=== PATIENT | female | born 1970 | race Caucasian/White ===

== ENCOUNTER 2018-02-09 08:52 | Outpatient (REF) | payer BC, SELFPAY ==
[2018-02-09 13:15] LABS: Anion Gap 9.4 mmol/L (3-11); BUN 14 mg/dL (7-18); CO2 28.6 mmol/L (21.0-32.0); Calcium 9.3 mg/dL (8.5-10.1); Chloride 102 mmol/L (98-107); Cholesterol 192 mg/dL (50-200); Glucose 90 mg/dL (70-100); HDL Cholesterol 75 mg/dL (40-60); LDL CHOLESTEROL 108 mg/dL (<100); Potassium 4.1 mmol/L (3.5-5.1); Sodium 140 mmol/L (136-145); Triglyceride 47 mg/dL (30-150)
== END 2018-02-09 09:12 ==
LOC: NCHCN 08:52
PROVIDERS: PCP Nurse Practitioner Family; Visit Provider Nurse Practitioner Family
DX: I10 Essential (primary) hypertension (principal)
CPT/HCPCS: 80048; 80061; 83721

== ENCOUNTER 2018-08-29 01:21 | Outpatient (CLI) | payer BC, SELFPAY ==
--- NOTE | 2018-08-29 12:21 | DI.MAMMO_ITS ---
SYMPTOM/DIAGNOSIS: SCREENING, PREVENTATIVE CARE, Z00.00 MAMMOGRAMS: Mammograms were interpreted according to the usual protocol including computer analysis with CAD system, tomosynthesis and C view imaging. Comparison is made with prior examinations. Breast density, Category B. No suspicious masses are seen in the right breast. No suspicious microcalcifications are seen. There are two areas of asymmetric breast tissue in the left breast, one in the medial left breast seen on the craniocaudad view and one in the upper left breast seen on the mediolateral oblique view. These areas should be further evaluated with spot compression views. Ultrasound may be indicated at that time. IMPRESSION: Category 0. MQSA ASSESSMENT OF FINDINGS: Incomplete: Needs additional imaging evaluation. Category 0. Patient will receive a letter notifying them of these results. BI-RADS category B. There are scattered areas of fibroglandular density.
--- NOTE | 2018-08-29 12:28 | DI.RAD_ITS ---
SYMPTOMS/DIAGNOSIS: RIGHT THUMB PAIN, M79.644 RIGHT THUMB: Three views. There are hypertrophic changes seen at the 1st carpometacarpal joint. The 1st metacarpophalangeal joint and the interphalangeal joint of the thumb are well maintained. The bones are intact and normally mineralized. The soft tissues are unremarkable. IMPRESSION: Mild degenerative changes of the 1st CMC joint.
== END 2018-08-29 01:41 ==
PROVIDERS: PCP Nurse Practitioner Family; Visit Provider Nurse Practitioner Family
DX: Z12.31 Encounter for screening mammogram for malignant neoplasm of breast (principal); R92.8 Other abnormal and inconclusive findings on diagnostic imaging of breast; M18.11 Unilateral primary osteoarthritis of first carpometacarpal joint, right hand; M79.644 Pain in right finger(s)
CPT/HCPCS: 77063; 77067; 73140

== ENCOUNTER 2018-09-01 05:52 | Outpatient (CLI) | payer BC, SELFPAY ==
--- NOTE | 2018-09-01 11:06 | DI.COMBO_ITS ---
SYMPTOMS/DIAGNOSIS: F/U MAMMO, TWO AREAS OF ASYMMETRIC BREAST TISSUE LT BREAST ADDITIONAL MAMMOGRAPHIC VIEWS LEFT BREAST AND LEFT BREAST ULTRASOUND: Additional images are interpreted according to the usual protocol including tomosynthesis and 2D imaging. Additional mammographic views of the left breast and left breast ultrasound are interpreted in conjunction. These examinations were obtained to evaluate questionable areas of asymmetric density identified in left breast on recent mammogram. Additional mammographic views fail to show a discrete mass. Breast ultrasound shows no evidence of a mass or cyst. CONCLUSION: No specific evidence of malignancy at this time. Follow up unilateral left breast mammogram recommended in 6 months. Category 3. Breast density Category B. MQSA ASSESSMENT OF FINDINGS: Probably benign. Six month follow-up recommended. Category 3. Patient will receive a letter notifying them of these results. BI-RADS category B. There are scattered areas of fibroglandular density.
== END 2018-09-01 06:12 ==
PROVIDERS: PCP Nurse Practitioner Family; Visit Provider Nurse Practitioner Family
DX: Z12.31 Encounter for screening mammogram for malignant neoplasm of breast (principal); R92.8 Other abnormal and inconclusive findings on diagnostic imaging of breast; N64.59 Other signs and symptoms in breast
CPT/HCPCS: 76642; 77063; 77067

== ENCOUNTER 2019-02-22 00:40 | Outpatient (CLI) | payer BC, SELFPAY ==
--- NOTE | 2019-02-22 08:13 | DI.RAD_ITS ---
EXAM: XR SHOULDER RT COMPLETE 2+V INDICATION: RT SHOULDER PAIN,M25.511,TRAUMA IN OCTOBER, CONTINUED PAIN AND LIMITED. COMPARISON: No exams were available for comparison TECHNIQUE: 2D digital imaging was performed. FINDINGS: The bony structures are normally mineralized. The glenohumeral joint is well maintained. There are m ild degenerative changes involving the AC joint. There is no evidence of a fracture or dislocation.
== END 2019-02-22 01:00 ==
PROVIDERS: PCP Nurse Practitioner Family; Visit Provider Nurse Practitioner Family
DX: M25.511 Pain in right shoulder (principal); M19.011 Primary osteoarthritis, right shoulder
CPT/HCPCS: 73030

== ENCOUNTER 2019-03-07 01:21 | Outpatient (CLI) | payer BC, SELFPAY ==
--- NOTE | 2019-03-07 09:28 | DI.MAMMO_ITS ---
EXAM: MG MAMMO DIAGNOSTIC UNI CLINICAL HISTORY: ABNORMAL MAMMO LT BREST R92.8 TECHNIQUE: Spot compression cc view with tomography was performed of the medial portion of the breas t. Additional images are interpreted according to the usual protocol including tomosynthesis and 2D imag ing. COMPARISON: Screening Bilat Mammo from 01/14/2016 MG mammo screening from 08/29/2018 MG mammo screen call back UNI from 09/01/2018 FINDINGS: This is a six-month follow-up to 08/29/18 and 09/01/18. The left breast is composed of scattered fibro glandular densities, breast density category B. No mass or suspicious calcifications are seen. IMPRESSION: Category 1, negative mammogram. Bilateral screening should be resumed in 6 months. BI-RADS Cat 1 - Negative. Breast Density - Category B - Scattered areas of fibroglandular density.
== END 2019-03-07 01:41 ==
PROVIDERS: PCP Nurse Practitioner Family; Visit Provider Nurse Practitioner Family
DX: Z12.31 Encounter for screening mammogram for malignant neoplasm of breast (principal); R92.8 Other abnormal and inconclusive findings on diagnostic imaging of breast; N64.59 Other signs and symptoms in breast
CPT/HCPCS: 77061; 77065; G0279

== ENCOUNTER 2019-10-06 11:52 | Outpatient (REF) | payer BC, SELFPAY ==
[2019-10-06 15:31] LABS: Anion Gap 10.9 mmol/L (3-11); BUN 22 mg/dL (7-18); CO2 27.1 mmol/L (21.0-32.0); Calcium 10.4 mg/dL (8.5-10.1); Chloride 99 mmol/L (98-107); Estimated GFR 58.45 (mL/min/1.73m2); Glucose 103 mg/dL (74-106); Potassium 4.2 mmol/L (3.5-5.1); Sodium 137 mmol/L (136-145)
[2019-10-07 11:02] LABS: HIV-1/2 Ag & Ab Screen Negative (Negative)
[2019-10-09 10:59] LABS: Hepatitis C Ab w Rflx HCV PCR Negative (Negative)
== END 2019-10-06 12:12 ==
LOC: NCHCN 11:52
PROVIDERS: PCP Nurse Practitioner Family; Visit Provider Nurse Practitioner Family
DX: Z00.00 Encounter for general adult medical examination without abnormal findings (principal); I10 Essential (primary) hypertension; Z11.59 Encounter for screening for other viral diseases
CPT/HCPCS: 80048; 86803; 87389

== ENCOUNTER 2019-11-10 07:55 | Outpatient (CLI) | payer BC, SELFPAY ==
[2019-11-12 08:33] LABS: COVID-19 RT-PCR Result NEGATIVE (Negative)
== END 2019-11-10 08:15 ==
PROVIDERS: PCP Nurse Practitioner Family; Visit Provider Student in an Organized Health Care Education/Training Program
DX: Z01.818 Encounter for other preprocedural examination (principal); Z11.59 Encounter for screening for other viral diseases
CPT/HCPCS: U0003

== ENCOUNTER 2019-11-14 07:46 | Day surgery (SDC) | payer BC, SELFPAY ==
[2019-11-14] VITALS (7 sets, daily range): BP systolic 127–156; BP diastolic 85–98; PULSE 62–70; RESP 14–17; TEMP 36.1–36.8; O2SAT 98–100
--- NOTE | 2019-11-14 08:45 | DI.RAD_ITS ---
EXAM: XR HAND RT LIMITED CLINICAL HISTORY: ARTHRITIS CMC JOINT RIGHT THUMB TECHNIQUE: COMPARISON: No exams were available for comparison FINDINGS: C-arm fluoroscopy was utilized by Dr. Flower. Please see Dr. Flower procedure note. Hard copy s hows needle overlying base of the 1st metacarpal. Total exposure time 3 seconds. IMPRESSION:
--- NOTE | 2019-11-14 09:09 | W.PM.DSUDISC ---
Discharge Plan Disposition Patient Disposition: HOME Condition: Good Discharge Details Reason For Visit: Right Trapezial Arthroplasty Attending Provider: Edy Flower Primary Care Provider: David Duffy Home Meds and New Rx's Prescriptions: New hydrocodone-acetaminophen 5-325 mg tablet 1 tab PO Q6H PRN (Reason: pain) Qty: 10 RF: 0 ibuprofen 600 mg tablet 600 mg PO TID PRN (Reason: pain) Qty: 30 RF: 0 acetaminophen 500 mg capsule 500 mg PO Q4H PRN (Reason: pain) Qty: 30 RF: 0 Continued lisinopril 10 mg tablet 10 mg PO DAILY RF: 0 Discharge Instructions Additional Instructions: Thumb CMC Discharge Instructions Activity: You should keep the hand/thumb elevated as much as possible for the first few days. You may use the other fingers as tolerated but avoid trying to do too much too soon. You may perform light activities with the splint in place. Dressing/Cast: Your splint should stay in place at all times. Do NOT get it wet. You may loosen the KODY wrap if you feel it is too tight and then rewrap more loosely. Medications: - You should take Tylenol and Ibuprofen for baseline pain control. - You have Hydrocodone for breakthrough pain. - You may apply ice over the thumb. Follow-up: 10-14 days Stand Alone Forms: DSU Post op Instructions, Reji Lau (DSU) Referrals: Edy Flower MD [ [facility] STAFF PHYSICIAN] - Equipment/Supplies: Sling Activity:: Elevate Remove Dressings/Wound Care:: Do Not Remove Shower/Bathe:: Cover Diet:: As Tolerated Discharge Orders Discharge Orders: Discharge Order (Routine); Ordered 11/14/19 Ordered By: Chris Vasques DS: Diagnosis Discharge Diagnosis (1) Arthritis of carpometacarpal (CMC) joint of right thumb: Status: Acute
[2019-11-14] MEDS: ceFAZolin 2 GM/50 ML BAG IVPB (09:46)
--- NOTE | 2019-11-14 10:52 | W.PM.OP ---
Date of service: 11/14/19 Time of Service: 10:52 Operative Note Operative Note DATE OF PROCEDURE: 11/14/19 PRE-OP DIAGNOSIS: Right Thumb CMC Arthritis POST-OP DIAGNOSIS: same PROCEDURE: Right trapezial resection arthroplasty with suture suspensionplasty SURGEON: Edy Flower PLANT [employer] SCIENTIST: Chris Vasques ANESTHESIA: DANIELLE ESTIMATED BLOOD LOSS: 5 PATHOLOGY: none sent TOURNIQUET TIME: 37 COMPLICATIONS: None Patient was transported to: PACU Patient's condition: stable Indications: Izabella is a 49 year old female who has had symptoms of right thumb CMC arthritis with pain and decreased mobility. Nonoperative treatment options had been trialed. Given their failure, I offered operative intervention. I reviewed the technical details. I reviewed the risk of the procedure to include bleeding, infection, pain, stiffness, instability, subsidence, damage to neighboring arteries, damage to the superficial radial nerve, and weakness. Despite these risks, the patient elected to proceed. Findings: There is notable arthrosis between the trapezium and the first metacarpal. There are large osteophytes around the entirety of the trapezium. Procedure Description: Izabella was greeted in the preoperative holding area. Name and surgical site were confirmed. The history and physical was completed. The consent was reviewed the patient and signed. Izabella was taken back to the operating room. The patient was placed and monitored anesthesia care. The right hand and arm was then prepped with ChloraPrep and draped in a standard fashion after a nonsterile tourniquet was placed high up onto the arm. Prophylactic antibiotics in the form of cefazolin were administered. A timeout was performed for safe surgery. The surgical site was drawn on the skin overlying the dorsal radial border of the wrist. The planned surgical field was anesthetized with 0.25% bupivacaine with epinephrine. The limb was exsanguinated and the tourniquet was inflated where it stayed for 37 minutes. A 3 cm incision was made longitudinally over the radial wrist from the level of the radial styloid to just past the base of the first metacarpal. The skin was incised only. The deep tissue and subcutaneous fat was dissected with a tenotomy scissors trying to protect branches of the superficial radial nerve. Any branches that were identified were retracted out of the way. The first compartment extensor tendons were then identified. The first extensor compartment was released. The interval between EPL and EPB was identified. The base of the first metacarpal was palpated. A needle was placed into the joint between the first metacarpal and the trapezium. A single x-ray was used to confirm appropriate positioning. The capsule of the trapezium was then incised. The radial border of the bone was identified. Soft tissues around trapezium were dissected bluntly to allow relaxation of vital arterial structures traversing the trapezium. Using a [place] blade the capsule was elevated off the trapezium in a subperiosteal fashion. Once it appeared to have all the capsular attachments released, the tap was removed. The trapezium was then removed using a rongeur. The wound was inspected to make sure all portions of the trapezium were removed. The wound was then thoroughly irrigated. Using a #2 FiberWire, I then performed a suture suspensionplasty. This was done by incorporating capsule and attachments of the APL at the base of the first metacarpal and creating a sling connected to the deep flexor carpi radialis tendon seen traversing deep within the wound towards the second metacarpal. This was done twice to create a crossing network of 2-0 suture. This was then tied overlying the base of the first metacarpal making sure not to over tighten and hourglass the tendons. This provided support to the first metacarpal to prevent any excessive subsidence. The tourniquet was then released. There is no significant bleeding. The capsule of the trapezium was then reapproximated with a 2-0 Vicryl. The skin was closed with 4-0 Monocryl in a running, subcuticular fashion. The hand was dressed with 4 x 4's, web roll, thumb spica splint. I did occasional counts are correct. Patient was transferred back to PACU in a stable condition.
[2019-11-14] MEDS: Lactated Ringers 1,000 ML 80 ML IV (11:07)
== END 2019-11-14 12:31 | disposition home or self-care (01) ==
PROVIDERS: PCP Nurse Practitioner Family; Visit Provider Student in an Organized Health Care Education/Training Program
PROC: (CPT 25447; principal; 2019-11-14 09:45)
DX: M18.11 Unilateral primary osteoarthritis of first carpometacarpal joint, right hand (principal); M25.531 Pain in right wrist
CPT/HCPCS: 25447; 73120; J0690; J1100; J1885; L3650

== ENCOUNTER 2020-03-11 00:43 | Outpatient (CLI) | payer BC, SELFPAY ==
--- NOTE | 2020-03-11 | DI.MAMMO_ITS ---
EXAM: MG MAMMO SCREENING CLINICAL HISTORY: SCREENING,H/O ABNL IN 03/2019,6 MONTH SCREENING SUGGESTED TECHNIQUE: Mammograms were interpreted according to the usual protocol including computer analysis w ith CAD system, tomosynthesis and C-view imaging. COMPARISON: FINDINGS: The breasts are of moderate density with fairly symmetrical distribution of fibroglandular tissue. N o dominant mass or clumped microcalcification is identified in either breast. Current examination is compared with previous examinations including August 2018 and there is increased prominence of a foca l area of asymmetric density projected in the central superior portion of right breast on MLO view. Cc view shows couple of questionable areas of nodularity in the lateral central portion of the breast . Additional mammographic views are requested to include CC and MLO spot compression views of the ri ght breast. No other significant change seen. IMPRESSION: Additional mammographic views of the right breast recommended as described above. Breast ultrasound may be indicated as well depending on the results of the additional mammographic views. BI-RADS Category 0 - Assessment Incomplete: Need additional imaging evaluation Breast Density - Category B - Scattered areas of fibroglandular density
== END 2020-03-11 01:03 ==
PROVIDERS: PCP Nurse Practitioner Family; Visit Provider Nurse Practitioner Family
DX: Z12.31 Encounter for screening mammogram for malignant neoplasm of breast (principal)
CPT/HCPCS: 77063; 77067

== ENCOUNTER 2020-03-14 01:23 | Outpatient (CLI) | payer BC, SELFPAY ==
--- NOTE | 2020-03-14 | DI.US_ITS ---
EXAM: MG MAMMO SCREEN CALL BACK UNI and U/S breast RT limited CLINICAL HISTORY: F/U MAMMO, INCREASED ASYMMETRIC DENSITY AND NODULARITY. TECHNIQUE: Craniocaudal and mediolateral oblique Full Field Digital Mammography views of the right b reast with Computer Aided Diagnosis followed by Tomosynthesis and right breast ultrasound. COMPARISON: Previous available for comparison. FINDINGS: Mammography/Tomosynthesis: Masses/Architectural Distortion: On the additional views 2 well-circumscribed nodules are seen in the outer breast on the CC views. No areas of architectural distortion are seen. Microcalcifictions: No suspicious pleomorphic-type are seen. Skin Thickening/Nipple Retraction: None. Right breast US: Echotexture: Normal appearance of the glandular tissue. Shadowing: No suspicious foci. Cyst: None. Solid lesions: There is an ovoid well-circumscribed hypoechoic nodule at the 10 o'clock position of t he right breast 6 cm from the nipple measuring 1.4 x 0.7 cm. No posterior acoustic shadowing or enha ncement is seen. No internal blood flow is present. Sonographically benign-appearing lymph nodes ar e also seen at the 10 o'clock position of the right breast 8 cm from the nipple. Ductal dilation: None. IMPRESSION: 1. No evidence of malignancy is noted. 2. A six-month follow-up right breast ultrasound and mammogram are requested for re-evaluation. 3. The findings were discussed with the patient on the date of the examination. BI-RADS Category 3 - 6 month - Probably Benign Finding: Recommend follow-up mammography in 6 months Breast Density - Category B - Scattered areas of fibroglandular density A negative radiographic report should not delay biopsy if a dominant or clinically suspicious mass is present. Up to ten percent of cancers are not identified on mammography. A negative report may reinforce clinical impression. Adenosis and dense breasts may obscure an underlying neoplasm. False positive reports average 6 to 10%. Patient will receive a letter notifying them of these results.
== END 2020-03-14 01:43 ==
PROVIDERS: PCP Nurse Practitioner Family; Visit Provider Nurse Practitioner Family
DX: R92.8 Other abnormal and inconclusive findings on diagnostic imaging of breast (principal); N63.12 Unspecified lump in the right breast, upper inner quadrant
CPT/HCPCS: 76642; 77063; 77067

== ENCOUNTER 2020-09-10 02:04 | Outpatient (CLI) | payer BC, SELFPAY ==
--- NOTE | 2020-09-10 | DI.US_ITS ---
Exam(s) MG MAMMO DIAGNOSTIC UNI US BREAST RT LIMITED EXAM: MG MAMMO DIAGNOSTIC UNI CLINICAL HISTORY: DIAGNOSTIC, 6 MO F/U, F/U ABNL MAMMO,R92.8 TECHNIQUE: Mammograms were interpreted according to the usual protocol including computer analysis w ith CAD system, tomosynthesis and C-view imaging. COMPARISON: FINDINGS: Today's right breast mammogram and right breast ultrasound are interpreted in conjunction. These exa minations were obtained to follow a right breast nodule seen in the 10 o'clock position on prior exam inations of March 2020. This was a hypo to isoechoic nodule which was fairly well-circumscribed a nd horizontally oriented and measuring about 15 x 7 millimeters in diameter. Findings are essentiall y unchanged on today's examination both mammographically and ultrasonographically. No new mass ident ified in the right breast. IMPRESSION: No specific evidence of malignancy at this time. I would suggest that routine screening examination s resume with a bilateral mammogram in 6 months. BI-RADS Category 3 - 6 month - Probably Benign Finding: Recommend follow-up mammography in 6 months Breast Density - Category B - Scattered areas of fibroglandular density
== END 2020-09-10 02:24 ==
PROVIDERS: PCP Nurse Practitioner Family; Visit Provider Nurse Practitioner Family
DX: Z12.31 Encounter for screening mammogram for malignant neoplasm of breast (principal); R92.8 Other abnormal and inconclusive findings on diagnostic imaging of breast; N63.11 Unspecified lump in the right breast, upper outer quadrant
CPT/HCPCS: 76642; 77061; 77065; G0279

== ENCOUNTER 2020-09-26 09:17 | Outpatient (REF) | payer BC, SELFPAY ==
--- NOTE | 2020-09-26 08:30 | PAPFT_PTH ---
PATIENT: Izabella Alarcon [id number] AGE/SX: 50/F ROOM: RE09/26/[address]: David Duffy : 1970 BED: DIS: 09/26/2020 SPEC #: [id number] RECD: 09/26/20 17:50 STATUS: NATALIE RERajan #: [id number] ELA: 09/26/20 08:[address]: David Duffy DEPT: [facility] Cytology RECD BY: Marj Mg Tissues: 1 - CX/ENDOCX FOR PAP SMEARS Procedures: PAP THIN PREP/UVM Screening HPV DNA PROBE Comments: [id number]
[2020-09-26 15:45] LABS: ALT 24 U/L (14-59); AST 21 U/L (15-37); Albumin 4.3 g/dL (3.4-5.0); Alkaline Phosphatase 57 U/L (46-116); Anion Gap 8.6 mmol/L (3-11); BUN 16 mg/dL (7-18); Bilirubin, Total 0.7 mg/dL (0.2-1.0); CO2 28.4 mmol/L (21.0-32.0); Calcium 10.1 mg/dL (8.5-10.1); Chloride 102 mmol/L (98-107); Estimated GFR 58.22 (mL/min/1.73m2); Glucose 96 mg/dL (74-106); Potassium 4.2 mmol/L (3.5-5.1); Sodium 139 mmol/L (136-145); Total Protein 7.3 g/dL (6.4-8.2)
== END 2020-09-26 09:18 | disposition home or self-care (01) ==
LOC: NCHCN 09:17
PROVIDERS: PCP Nurse Practitioner Family; Visit Provider Nurse Practitioner Family
DX: Z00.00 Encounter for general adult medical examination without abnormal findings (principal); I10 Essential (primary) hypertension; Z68.32 Body mass index [BMI] 32.0-32.9, adult; Z12.4 Encounter for screening for malignant neoplasm of cervix; Z11.51 Encounter for screening for human papillomavirus (HPV)
CPT/HCPCS: 80053; 88142; 87624

== ENCOUNTER 2021-07-29 01:27 | Outpatient (CLI) | payer BC, SELFPAY ==
--- NOTE | 2021-07-29 | DI.MAMMO_ITS ---
Exam(s) MAMMO SCREENING EXAM: MAMMO SCREENING CLINICAL HISTORY: SCREENING FOR BREAST CANCER Z12.39 TECHNIQUE: Bilateral full field digital CC and MLO mammographic images were obtained with 3D tomosyn thesis and utilizing computer aided detection (CAD). COMPARISON: Available for comparison. FINDINGS: Masses/Architectural Distortion: None seen. Microcalcifications: No suspicious pleomorphic-type are seen. Skin Thickening/Nipple Retraction: None. IMPRESSION: 1. No significant interval change with no specific features of malignancy noted. 2. Unless there is more urgent need, screening mammography is recommended, as per [employer] guidelines. BI-RADS Category 1 - Negative Breast Density - Category B - Scattered areas of fibroglandular density Breast density category C or D implies that the patient has dense breast tissue. Dense breast tissue is very common and is not abnormal but dense breast tissue can make it harder to find cancer on a ma mmogram. Also, dense breast tissue may increase their breast cancer risk. This information about the result of the mammogram report was provided to the patient to raise their awareness. Use this report when you speak with the patient about their risks for breast cancer, which includes their family hist ory. At that time, you may recommend for more screening tests (Ultrasound or MRI) as they might be us eful based on their risk. A negative radiographic report should not delay biopsy if a dominant or clinically suspicious mass is present. Up to ten percent of cancers are not identified on mammography. A negative report may reinforce clinical impression. Adenosis and dense breasts may obscure an underlying neoplasm. False positive reports average 6 to 10%. Patient will receive a letter notifying them of these results.
== END 2021-07-29 01:47 ==
PROVIDERS: PCP Nurse Practitioner Family; Visit Provider Nurse Practitioner Family
DX: Z12.31 Encounter for screening mammogram for malignant neoplasm of breast (principal)
CPT/HCPCS: 77063; 77067

== ENCOUNTER 2022-12-31 11:35 | Outpatient (REF) | payer BC, SELFPAY ==
[2022-12-31 16:29] LABS: ALT 26 U/L (14-59); AST 28 U/L (15-37); Albumin 4.5 g/dL (3.4-5.0); Alkaline Phosphatase 55 U/L (46-116); Anion Gap 11.8 mmol/L (3-11); BUN 19 mg/dL (7-18); Bilirubin, Total 0.8 mg/dL (0.2-1.0); CO2 25.2 mmol/L (21.0-32.0); CREATININE 0.9 mg/dL (0.55-1.02); Calcium 10.6 mg/dL (8.5-10.1); Calculated LDL 153 mg/dL (<100); Chloride 101 mmol/L (98-107); Cholesterol 244 mg/dL (<200); Estimated GFR 75.97 (mL/min/1.73m2); Glucose 101 mg/dL (74-106); HDL Cholesterol 78 mg/dL (40-60); Potassium 4.3 mmol/L (3.5-5.1); Sodium 138 mmol/L (136-145); Total Protein 8.1 g/dL (6.4-8.2); Triglyceride 67 mg/dL (<150)
== END 2022-12-31 11:36 | disposition home or self-care (01) ==
LOC: NCHCN 11:35
PROVIDERS: Visit Provider Nurse Practitioner Family
DX: I10 Essential (primary) hypertension (principal); Z13.220 Encounter for screening for lipoid disorders
CPT/HCPCS: 80053; 80061

== ENCOUNTER → 2023-02-26 00:22 | Outpatient (CLI) | payer BC, SELFPAY ==
--- NOTE | 2023-02-26 08:00 | DI.MAMMO_ITS ---
Exam(s) MAMMO SCREENING EXAM: MAMMO SCREENING CLINICAL HISTORY: SCREENING, Z12.39 TECHNIQUE: Mammograms were interpreted according to the usual protocol including computer analysis w [employer] CAD system, tomosynthesis and C-view imaging. COMPARISON: 2015 through 2021 FINDINGS: The breasts are composed of scattered fibroglandular densities, Breast Density category B. No suspicious masses or suspicious microcalcifications are seen. No skin thickening or abnormal axillary lymph nodes are seen. There has been no significant change from prior exams. IMPRESSION: BI-RADS Category 1, Negative mammogram Yearly screening mammography is recommended. Breast Density - Category B, scattered fibroglandular densities. A negative radiographic report should not delay biopsy if a dominant or clinically suspicious mass is present. Up to ten percent of cancers are not identified on mammography. A negative report may reinforce clinical impression. Adenosis and dense breasts may obscure an underlying neoplasm. False positive reports average 6 to 10%. Patient will receive a letter notifying them of these results.
== END ==
PROVIDERS: Visit Provider Nurse Practitioner Family
DX: Z12.31 Encounter for screening mammogram for malignant neoplasm of breast (principal); R92.323 Mammographic fibroglandular density, bilateral breasts
CPT/HCPCS: 77063; 77067

== ENCOUNTER 2023-10-29 09:09 | Day surgery (SDC) | payer BC, SELFPAY ==
--- NOTE | 2023-10-28 12:54 | W.COLOREPORT ---
Date of service: 10/29/23 Time of Service: 12:20 Colonoscopy Report Date of procedure: 10/29/23 Pre-op diagnosis general: CRC screening Post-op diagnosis procedure note: other (External hemorrhoids/diverticula/colon polyp) Surgeon: Rachelle Alvarado Anesthesia Type: General:No Airway Estimated blood loss (mL): 1 Pathology: other Complications: None Disposition: same day Prep: Miralax/Dulcolax Retraction Time: 13 Procedure Description: After informed consent was obtained the patient was taken to the procedure room and placed in a left decubitous position. Monitors were applied and a time out was done. The patients name, date of , procedure, allergies to medications and metal in their body was reviewed. The patient was then sedated. Once sedated and comfortable a rectal exam was done. External exam shows small external hemorrhoids with no thrombosis or inflammation.. Internal exam revealed a normal sphincter tone and no palpable masses. The scope was then introduced and retrofelexed. No internal hemorrhoids were identified. The scope was then advanced to the cecum without difficulty. The TI and appendiceal orifice were identified. She had a significant amount of bubbles that obscured the right colon. This would make it difficult to see any lesions less than 5 mm. The scope was then slowly retracted over 13 minutes back into the rectum. She has a small flat polyp at 40 cm that is removed with a cold biting forcep. All specimen is retrieved and no bleeding is noted. She has a few small diverticula confined in the sigmoid colon. There is no signs of active bleeding or infection. Mucosa is pink and healthy with a normal vascular pattern.. The scope was removed and the patient was woken up and taken back to Same day surgery in stable condition. The patient tolerated the procedure well and there were no immediate complications. Follow up: The patient should follow up in 5 to 7 years, path pending, unless they develop changes in bowel habits or other new gastrointestinal complaints. [place] Bowel Prep [place] Bowel Prep Right Colon: 2 Left Colon: 3 Transverse Colon: 3 Total Score: 8
--- NOTE | 2023-10-28 21:48 | PDOC.DSDIS_ITS ---
Date of service: 10/29/23 Time of Service: 12:18 Discharge Plan Disposition Patient Disposition: Home Condition: Good Discharge Details Reason For Visit: colon scope Attending Provider: Rachelle Alvarado Primary Care Provider: David Perera Home Meds and New Rx's Prescriptions: Continued lisinopril-hydrochlorothiazide 20-25 mg tablet 1 tab PO DAILY omeprazole magnesium 20 mg tablet,delayed release (DR/EC) 20 mg PO DAILY Discontinued bisacodyl [Dulcolax (bisacodyl)] 5 mg tablet,delayed release (DR/EC) 5 mg PO ONCE Qty: 4 0RF Rx Instructions: Take per colonoscopy instructions provided by ordering providers office polyethylene glycol 3350 17 gram/dose powder 17 g PO ONCE Qty: 238 0RF Rx Instructions: Take per colonoscopy instructions provided by ordering providers office Discharge Instructions Additional Instructions: DSU Colonoscopy Post- Op Instructions Instructions for Everyone who is given Anesthesia: For your safety, please do the following for the next twenty-four (24) hours: *Do Not operate a motor vehicle (car, truck, motorcycle, etc.) *Do Not drink alcoholic beverages or use any recreational drugs for the first 24 hours or while taking pain medications. The medications in your body may have a reaction that can be dangerous. *Do Not make any important decisions or sign any important papers. Findings: External hemorrhoids-These are small and I would not recommend surgery. Diverticula: Make sure you are moving your bowels on a regular basis and not straining. If you find that you have any problems with constipation or straining to move your bowels, then is recommended you start a fiber product such as Metamucil or Citrucel. Follow up: We did remove a small polyp today. My office will send you a letter in 2 to 3 weeks time with the results of the pathology and when we want to repeat your colonoscopy, probably in 7 to 10 years time. 1. No lifting over 20 pounds or strenuous activity for the first 24 hours after your procedure. After 24 hours there are no restrictions on your activity but you may feel fatigued for a few days. 2. After you arrive home you may have a light meal and return to your normal diet as you can tolerate it without feeling sick to your stomach. 3. You may have a bloated, gaseous feeling in your belly (abdomen) after a colonoscopy. Passing gas and belching will help. Walking or lying down on your left side with your knees flexed may relieve the discomfort. Call the office at [phone] (Office) or [phone] (Hospital) right away if you notice any of the following: a.Vomiting of blood or ?coffee ground stools?. b.Rectal bleeding 1Tbsp, blood clots or continuous bleeding. c.Severe belly (abdominal) pain. d.A hard distended belly (abdomen) and an inability to pass gas. 4. Please don?t expect to have a normal BM (bowel movement) for 2-3 days after your procedure. 5. If there are questions regarding the findings of your procedure, please contact your doctor 6. If you are unable to contact your doctor with a problem, contact the hospital at [phone]. 7. Continue all your regular medications unless directed otherwise. I understand the above instructions and have no questions. Signature of Patient or Adult Escort Name of Responsible Adult Escort Signature of Nurse Date/Time Stand Alone Forms: Anesthesia Discharge Inst., Reji Lau (DSU) Activity:: see above Diet:: see above Discharge Orders Discharge Orders: Discharge Order (Routine); Ordered 10/29/23 Ordered By: Rachelle Alvarado DS: Diagnosis Discharge Diagnosis (1) GERD (gastroesophageal reflux disease): Status: Chronic (2) Hypertension: (3) Diverticula of colon: Status: Acute Asessment and Plan: The patient is seen and examined after their colonoscopy.? The patient has been able to pass gas.? They are not having abdominal pain.? They have been able to tolerate liquids and a snack.? They do not have any nausea or vomiting.? They are not having any chest pain or shortness of breath.??? They are not having any rectal bleeding. Their vital signs have been stable-see nursing notes. We discussed findings during their colonoscopy, and any biopsies that were done/polyps that were removed. The patient will be sent a letter with any biopsy results, and when to repeat the colonoscopy.-see discharge instructions. Patient was given explicit instructions to follow-up regarding colonoscopy-refer to discharge instructions.? We reviewed resumption of medications. Patient verbalized understanding and discharged in stable and satisfactory condition- See nursing notes. (4) Colon polyp: Status: Acute (5) External hemorrhoids without complication: Status: Acute
[2023-10-29 09:27] VITALS: BP 142/95; PULSE 81; RESP 20; TEMP 36.1; O2SAT 98
[2023-10-29] MEDS: Lactated Ringers 1,000 ML 80 ML IV (10:05)
[2023-10-29 10:51] VITALS: BMI 32.6
--- NOTE | 2023-10-29 10:51 | W.ANESPRE ---
General Info Date of Service Date Performed: 10/29/23 Height: 5 ft 5 in Weight: 89.1 kg Body Mass Index (BMI): 32.6 Surgical Procedure: Operation Date: 10/29/23 10:05 Proposed Procedure Side Surgeon keegan Alvarado, Meds Allergies and Home Medications Allergies Allergy/AdvReac Type Severity Reaction Status Date / Time Sulfa (Sulfonamide Allergy Skin Rash Verified 10/29/23 09:26 Antibiotics) Home Medication Medication Instructions Recorded lisinopril 20 1 tab PO DAILY 06/15/23 mg-hydrochlorothiazide 25 mg tablet omeprazole magnesium 20 mg 20 mg PO DAILY 06/15/23 tablet,delayed release Current Visit Medications: Current Medications Generic Name Dose Route Start Last Admin Trade Name Freq PRN Reason Stop Dose Admin Hyoscyamine Sulfate 0.125 mg 10/29/23 00:50 Hyoscyamine 0.125 Mg Sl/Oral/Chew SL 11/28/23 00:49 DIRECTED PRN Ringer's Solution 1,000 mls @ 80 mls/hr 10/29/23 06:00 10/29/23 10:05 IV 10/29/23 23:59 80 mls/hr INFUSION RENETTA Administration IV Miscellaneous Supplies 1 each 10/29/23 06:00 Iv Access IV 10/29/23 23:59 DIRECTED RENETTA Ondansetron HCl 4 mg 10/29/23 00:50 Ondansetron 4 Mg/2 Ml Vial IVP 11/28/23 00:49 Q4H PRN PRN Nausea / Vomiting Sodium Chloride 0 ml 10/29/23 06:00 Normal Saline Flush 10 Ml Syr IV 10/29/23 23:59 PRN PRN Sodium Chloride 0 ml 10/29/23 06:00 Normal Saline 10 Ml Vial IJ 10/29/23 23:59 DIRECTED PRN Sterile Water 0 ml 10/29/23 06:00 Water,Injection,Sterile 10 Ml Vial IJ 10/29/23 23:59 DIRECTED PRN PFSH Active Problems Active Problems: Problem Status Onset Code Hand eczema L30.9 GERD (gastroesophageal reflux disease) K21.9 Arthritis of carpometacarpal (CMC) joint of right thumb M18.11 SLAP lesion of right shoulder ~10/2018 S43.431A Tendonitis of long head of biceps brachii of right shoulder ~10/2018 M75.21 Bursitis of right shoulder ~10/2018 M75.51 Impingement syndrome of right shoulder ~10/2018 M75.41 Medical History Medical History Murmur, cardiac Pt. states she has had this all her life, and never had any issues with it. Hypertension Tobacco Smoking/Tobacco Use Status: Never Alcohol Alcohol Intake: current Alcohol intake frequency: 0-2 drinks per day Alcohol type: beer, wine and hard liquor Substance Use Substance use: Daily Substance use type: marijuana Vital Signs and Lab Results Vital Signs Most Recent Vital Signs in EMR: Most Recent Vital Signs Temp Pulse Resp BP Pulse Ox 36.1 C L 81 20 142/95 H 98 10/29/23 09:27 10/29/23 09:27 10/29/23 09:27 10/29/23 09:27 10/29/23 09:27 Point of Care Results Point of Care Results: POC- Test(urine) Negative 10/29/23 09:30 Lab Results Blood Type / Crossmatch: No Data to Display Complete Blood Count: No Data to Display Complete Metabolic Panel: No Data to Display Liver Function Panel: No Data to Display Coagulation Panel: No Data to Display Cardiac Panel: No Data to Display Arterial Blood Gas: No Data to Display Venous Blood Gas: No Data to Display Pancreas Panel: No Data to Display Thyroid Panel: No Data to Display Infectious Disease: No Data to Display Blood Cultures: No Data to Display Toxicology Panel: No Data to Display Anesthesia Assessment and Plan Anesthesia History Personal History: No History of Anesthesia Complications Family History: No Family History of Anesthesia Complications Exercise Tolerance Exercise Tolerance: Metabolic Equivalents<4 Pertinent Negatives Pertinent Negatives: No Symptoms of GERD Cardiac & Pulmonary Exam Cardiac Exam: Normal S1/S2 Heart Sounds Pulmonary Exam: Clear Bilateral Breath Sounds Implantable Cardiac Device Does patient have a Pacemaker or an ICD?: No Airway Exam Known Difficult Airway: No Mallampati Class: 2 Mouth Opening: Normal (> 3cm) Thyromental Distance: Greater than 3 cm Neck Range of Motion: Full ROM Neck Circumference: Normal Teeth Condition: Normal Dentition ASA Classification ASA Score: ASA 2 Emergency Case?: No NPO Status NPO Status: NPO Clears >2 hours, Solids >8 hours Anesthesia Plan Resuscitation Status: Full Code Anesthesia Technique: General Anesthesia Airway Planned: Natural Airway Monitors Used: Standard Monitors
--- NOTE | 2023-10-29 11:24 | BOWEL_PTH ---
PATIENT: Izabella Alarcon LOC: [facility] U#:[id number] AGE/SX: 53/F ROOM: RE10/29/[address]: Rachelle Alvarado : 1970 BED: DIS: 10/29/2023 SPEC #: [id number] RECD: 10/29/23 13:10 STATUS: NATALIE REQ #: [id number] ELA: 10/29/23 11:[address]: Rachelle Alvarado DEPT: Surgical Specimen RECD BY: Marj Mg ENTERED: 10/29/23 13:12 SP TYPE: Bowel OTHR DR: David Beltran, FARHANA Tissues: 1 - BIOPSY BOWEL Procedures: GROSS AND MICRO LEVEL 4 Comments: [id number]
[2023-10-29 11:32] VITALS: BP 103/61; PULSE 71; RESP 18; TEMP 36.6; O2SAT 97
--- NOTE | 2023-10-29 11:40 | W.ANESPOSTOP ---
Postoperative Evaluation Date, Time and Location Date Performed: 10/29/23 Time Performed: 11:40 Patient Location: Day Surgery Unit Vital Signs Most Recent Imported Vital Signs: Most Recent Vital Signs Temp Pulse Resp BP Pulse Ox 36.1 C L 81 20 142/95 H 98 10/29/23 09:27 10/29/23 09:27 10/29/23 09:27 10/29/23 09:27 10/29/23 09:27 Pain Score Most Recent Pain Score: Most Recent Pain Score Pain Level 0 10/29/23 09:27 Assessment Mental Status: Awake (Alert & Oriented to Patient Baseline) Airway and Respiratory Function: Patent airway with normal (patient baseline) respiratory exam Cardiovascular Function: Hemodynamically Stable Hydration Status: Adequately Hydrated Nausea & Vomiting: No Nausea or Vomiting Pain: Pt. Denies Any Pain Peripheral Nerve Block: Patient did not receive a nerve block
[2023-10-29 12:02] VITALS: BP 126/99; PULSE 66; RESP 16; TEMP 36.7; O2SAT 96
== END 2023-10-29 12:38 | disposition home or self-care (01) ==
LOC: SUR 09:11
PROVIDERS: PCP Nurse Practitioner Family; Visit Provider Surgery
PROC: 0DJD8ZZ Inspection of Lower Intestinal Tract, Via Natural or Artificial Opening Endoscopic (ICD-10-PCS; CPT 45378; principal; 2023-10-29 10:00)
DX: I10 Essential (primary) hypertension; K57.30 Diverticulosis of large intestine without perforation or abscess without bleeding; D12.5 Benign neoplasm of sigmoid colon; K64.8 Other hemorrhoids; Z12.11 Encounter for screening for malignant neoplasm of colon
CPT/HCPCS: 45385; 81025; 88305; J2001; J2704

== ENCOUNTER 2024-01-20 15:57 | Outpatient (REF) | payer BC, SELFPAY ==
--- OUTSIDE RECORDS SUMMARY | 2024-01-20 16:00 | XMS_ITS | Encounter Summary ---
Author Organization [facility] Address [address] [place] [address] Care Team Providers Care Lime Supervisor Name Role Phone Unknown, Provider Primary Care Provider [phone] Unknown, Provider Unavailable [phone] Encounter Details Date Type Department Care Team (Late st Contact Info) Description 10/06/2019 Lab Requisition [facility] Pathology & Laboratory Medicine - [facility] [address] [place] [address] Outr Resulting Lab, Provider Social History Tobacco Use Types Packs/Day Years Used Date Smoking Tobacco: Never Assessed Sex and Gender Information Value Date Recorded Sex Assigned at Not on file Gender Identity Not on file Sexual Orientation Not on file documented as of this encounter Plan of Treatment Not on file documented as of this encounter Procedures Procedure Name Priority Date/Time Associated Diagnosis Comments HEPATITIS C AB W REFLEX TO HCV RNA BY PCR Routine 10/06/2019 11:30 EDT documented in this encounter Results * HEPATITIS C AB W REFLEX TO HCV RNA BY PCR (10/06/2019 11:30 EDT) Hep C Antibody Negative Negative 10/09/2019 10:53 EDT [facility] Blood VENOUS BLOOD / Unknown 10/06/2019 11:30 EDT 10/06/2019 20:41 EDT Provider Outr Resulting Lab CHEMISTRY & BLOOD GAS ORDERABLES [facility] [address] [place] [address] documented in this encounter Visit Diagnoses Not on filedocumented in this encounter Additional Health Concerns Infection Onset Date Last Indicated Resolved Time R/O COVID-19 11/10/2019 11/10/2019 11/15/2019 22:1 5 EDT documented as of this encounter Care Teams Lime Supervisor Relationship Specialty Start Date End Date Unknown, ProviderMD PCP - General 04/06/16 Unknown, ProviderMD 04/06/16 documented as of this encounter
--- OUTSIDE RECORDS SUMMARY | 2024-01-20 16:00 | XMS_ITS | Encounter Summary ---
Author Organization [facility] Address [address] [place] [address] Care Team Providers Care Vice President [employer] Name Role Phone Unknown, Provider MD Primary Care Provider [phone] Unknown, Provider MD Unavailable [phone] Encounter Details Date Type Department Care Team (Latest Contact Info) Description 09/27/2020 Lab Requisition [facility] Pathology & Laboratory Medicine - [facility] [address] [place] [address] David Perera, [address] [place] [id number] Encounter for general adult medical examination without abnormal findings; Encounter for screening for malignant neoplasm of cervix; Encounter for screening for human papillomavirus (HPV) Social History Tobacco Use Types Packs/Day Years Used Date Smoking Tobacco: Never Assessed Sex and Gender Information Value Date Recorded Sex Assigned at Not on file Gender Identity Not on file Sexual Orientation Not on file documented as of this encounter Plan of Treatment Not on file documented as of this encounter Procedures Procedure Name Priority Date/Time Associated Diagnosis Comments PAP TEST Today 09/26/2020 8:30 EDT Encounter for general adult medical examination without abnormal findings Encounter for screening for malignant neoplasm of cervix Encounter for screening for human papillomavirus (HPV) HPV DNA DETECTION WITH GENOTYPING, PCR Today 09/26/2020 8:30 EDT Encounter for general adult medical examination without abnormal findings Encounter for screening for malignant neoplasm of cervix Encounter for screening for human papillomavirus (HPV) documented in this encounter Results * HUMAN PAPILLOMAVIRUS (HPV) DETECTION-HIGH RISK TYPES (09/26/2020 8:30 EDT) HPV other High Risk types, PCR Negative Negative 10/09/2020 15:36 EDT [facility] Comment:No E6 or E7 mRNA is detected from HPV types 16,18,31,33,35,39,45,51,52,56,58,59,66, and 68 by jewel bearing broacher mediated amplification. Papanicolaou smear specimen (specimen) CERVIX UTERI STRUCTURE / Unknown 09/26/2020 8:30 EDT 10/08/2020 13:00 EDT David Duffy [facility] MICRO[facility]OLOGY - [facility] ORDERABLES [facility] [address] [place] [address] * PAP TEST (09/26/2020 8:30 EDT) Specimens A. Cervix and/or Endocervix , ThinPrep Imaging System with Manual Evaluation 10/09/2020 15:36 [facility] Specimen Adequacy Satisfactory for Evaluation - transformation zone component present 10/09/2020 15:36 [facility] General Categorization Negative for intraepithelial lesion or malignancy 10/09/2020 15:36 [facility] Attestation . 10/09/2020 15:36 [facility] at 1536 Clinical History See below 10/10/19 21 15:36 [facility] HPV The result for the Human Papillomavirus (HPV) Detection-High Risk Types is Negative. No E6 or E7 mRNA is detected from HPV types 16,18,31,33,35,39 ,45,51,52,56,58,5 9,66, and 68 by jewel bearing broacher mediated amplification.Lanie ting was performed on specimen [id number] and was resulted on 10/09/2020 1528 EDT by DERRICK, LAB INSTRUMENT RESULTS IN 10/09/2020 15:36 T [facility] Performing Lab [facility] 10/09/2020 15:36 EDT [facility] Scanned Images 10/09/2020 15:36 EDT [facility] Papanicolaou smear specimen (specimen) CERVIX UTERI STRUCTURE / Unknown 09/26/2020 8:30 EDT 09/27/2020 8:17 EDT David Duffy DNP PATHOLOGY ORDERAB LES [facility] [address] [place] [address] documented in this encounter Visit Diagnoses Diagnosis Encounter for general adult medical examination without abnormal findings Unspecified general medical examination Encounter for screening for malignant neoplasm of cervix Screening for malignant neoplasm of the cervix Encounter for screening for human papillomavirus (HPV) Special screening examination for human papillomavirus (HPV) documented in this encounter Care Teams Vice President [employer] Relationship Specialty Start Date End Date Unknown, ProviderMD PCP - General 04/06/16 Unknown, MD Juana 04/06/16 documented as of this encounter
--- OUTSIDE RECORDS SUMMARY | 2024-01-20 16:00 | XMS_ITS | Referral Summary ---
Author Organization [facility] Address [address] [place] [address] Care Team Providers Care Cable Technician Name Role Phone Unknown, Provider MD Primary Care Provider [phone] Unknown, Provider MD Unavailable [phone] Encounters Date Type Department Care Team Description 10/29/2023 Lab Requisition [facility] Pathology & Laboratory Medicine - [facility] [address] [place] [address] Rachelle Alvarado DO Residual hemorrhoidal skin tags; Diverticulosis of large intestine without perforation or abscess without bleeding; Polyp of colon; Encounter for screening for malignant neoplasm of colon from Last 3 Months Social History Tobacco Use Types Packs/Day Years Used Date Smoking Tobacco: Never Assessed Sex and Gender Information Value Date Recorded Sex Assigned at Not on file Gender Identity Not on file Sexual Orientation Not on file Plan of Treatment Not on file Procedures Procedure Name Priority Date/Time Associated Diagnosis Comments SURGICAL PATHOLOGY Today 10/29/2023 11 :24 EDT Residual hemorrhoidal skin tags Diverticulosis of large intestine without perforation or abscess without bleeding Polyp of colon Encounter for screening for malignant neoplasm of colon HEPATITIS C AB W REFLEX TO HCV RNA BY PCR Routine 10/06/2019 11:30 EDT from Last 3 Months or Most Recently Relevant to Health Maintenance Results * SURGICAL PATHOLOGY (10/29/2023 11:24 EDT) Note to Patient The following pathology results have been interpreted by your pathologist and may be available to you before your health provider has had the opportunity to review them. Please allow time for your provider to receive these results and explore management options, if applicable. 11/01/2023 14:23 [facility] Final Diagnosis A. COLON, AT 40 CM, POLYP, BIOPSY: - Tubular adenoma. 11/01/2023 14:23 [facility] Attestation By the signature below, the attending physician certifies that they have 1) personally conducted a gross and/or microscopic examination of the described specimen(s), and/or personally interpreted the results of laboratory testing of the described specimen(s), and 2) personally rendered or confirmed the above diagnosis. 11/01/2023 14:23 [facility] at 1423 Clinical History CRC screening, E. hem, polyps, few tic 11/01/2023 14:23 [facility] Gross Description A. Received in formalin labelled with proper patient identification (initials G, L) and colon polyp at 40 cm is a single aguero tissue (0.5 x 0.2 x 0.1 cm). Submitted intact in A1. Adia Tavera 11/01/2023 7:40 11/01/2023 14:23 [facility] Performing Lab [facility] 11/01/2023 14:23 [facility] Scanned Images 11/01/2023 14:23 [facility] Tissue COLON STRUCTURE / Unknown 10/29/2023 11:24 EDT 10/29/2023 20:56 EDT Rachelle Alvarado DO PATHOLOGY ORDERABLES [facility] [address] [place] [address] * HEPATITIS C AB W REFLEX TO HCV RNA BY PCR (10/06/2019 11:30 EDT) Hep C Antibody Negative Negative 10/09/2019 10:53 T [facility] Blood VENOUS BLOOD / Unknown 10/06/2019 11:30 EDT 10/06/2019 20:41 EDT Provider Outr Resulting Lab CHEMISTRY & BLOOD GAS ORDERABLES [facility] [address] [place] [address] from Last 3 Months or Most Recently Relevant to Health Maintenance Care Teams Cable Technician Relationship Specialty Start Date End Date Unknown, MD Juana PCP - General 04/06/16 Unknown, MD Juana 04/06/16
--- OUTSIDE RECORDS SUMMARY | 2024-01-20 16:00 | XMS_ITS | Encounter Summary ---
Author Organization [facility] Address [address] [place] [address] Care Team Providers Care Casting Room Operator Name Role Phone Unknown, Provider MD Primary Care Provider [phone] Unknown, Provider MD Unavailable [phone] Encounter Details Date Type Department Care Team (Late st Contact Info) Description 10/29/2023 Lab Requisition [facility] Pathology & Laboratory Medicine - [facility] [address] [place] [address] Rachelle Alvarado, DO [address] [place] [address] Residual hemorrhoidal skin tags; Diverticulosis of large intestine without perforation or abscess without bleeding; Polyp of colon; Encounter for screening for malignant neoplasm of colon Social History Tobacco Use Types Packs/Day Years [...] for screening for malignant neoplasm of colon documented in this encounter Results * SURGICAL PATHOLOGY (10/29/2023 11:24 EDT) Note to Patient The following pathology results have been interpreted by your pathologist and may be available to you before your health provider has had the opportunity to review them. Please allow time for your provider to receive these results and explore management options, if applicable. 11/01/2023 14:23 [facility] Final Diagnosis A. COLON, AT 40 CM, POLYP, BIOPSY: - Tubular adenoma. 11/01/2023 14:23 [facility] Attestation By the signature below, the attending physician certifies that they have 1) personally conducted a gross and/or microscopic examination of the described specimen(s), and/or personally interpreted the results of laboratory testing of the described specimen(s), and 2) personally rendered or confirmed the above diagnosis. 11/01/2023 14:23 [facility] at 1423 Clinical History CRC screening, E. hem, polyps, few tic 11/01/2023 14:23 [facility] Gross Description A. Received in formalin labelled with proper patient identification (initials G, L) and colon polyp at 40 cm is a single aguero tissue (0.5 x 0.2 x 0.1 cm). Submitted intact in A1. Adia Tavera 11/01/2023 7:40 11/01/2023 14:23 [facility] Performing Lab [facility] 11/01/2023 14:23 [facility] Scanned Images 11/01/2023 14:23 [facility] Tissue COLON STRUCTURE / Unknown 10/29/2023 11:24 EDT 10/29/2023 20:56 EDT Rachelle Alvarado DO PATHOLOGY ORDERABLES [facility] [address] [place], [place] [id number] documented in this encounter Visit Diagnoses Diagnosis Residual hemorrhoidal skin tags Diverticulosis of large intestine without perforation or abscess without bleeding Diverticulosis of colon (without mention of hemorrhage) Polyp of colon Benign neoplasm of colon Encounter for screening for malignant neoplasm of colon Special screening for malignant neoplasms, colon documented in this encounter Care Teams Casting Room Operator Relationship Specialty Start Date End Date Unknown, Provider, PCP - General 04/06/16 Unknown, Provider, 04/06/16 documented as of this encounter
--- OUTSIDE RECORDS SUMMARY | 2024-01-20 16:00 | XMS_ITS | Encounter Summary ---
Author Organization [facility] Address [address] [place] [address] Care Team Providers Care Journalism Internship Name Role Phone Unavailable Primary Care Provider Unavailabl e Encounter Details Date Type Department Care Team (Late st Contact Info) Description 01/06/2000 Results Only [facility] - Maple conversion [address] [place] [address] Ivy Aguilar [facility] [address] [place] [address] Social History Tobacco Use Types Packs/Day Years Used Date Smoking Tobacco: Never Assessed Sex and Gender Information Value Date Recorded Sex Assigned at Not on file Gender Identity Not on file Sexual Orientation Not on file documented as of this encounter Plan of Treatment Not on file documented as of this encounter Procedures Procedure Name Priority Date/Time Associated Diagnosis Comments CYTOPATHOLOGY Routine 01/06/2000 0:00 EDT documented in this encounter Results * CYTOPATHOLOGY (01/06/2000 0:00 EDT) Pathology Report: CYTOPATHOLOGY REPORT Reports generated via electronic interface contain original data; however they are lacking the format of the original report. Caution should be taken when reading/interpreti ng unformatted reports. Name: ? IZABELLA BOWMAN ? Accession #: ? [id number] : ? 1970 (Age: 29) ??F ?Collect Date: ? 01/06/2000 Location: ? [facility] ? Receive Date: ? 01/08/2000 Provider: ?IVY AGUILAR CNM Copy to: ? Specimen/Source: ?ThinPrep Pap Test, Cervix/Endocervix Last Menstrual Period: ? 02/07/99 Other: ? Additional clinical information: Acute inflammation, Normal since ? SPECIMEN ADEQUACY ? Satisfactory for evaluation. GENERAL CATEGORIZATION ? Within Normal Limits ? Document reviewed and electronically signed by: ? JUSTYNA Anthony(ASCP) ? Report Date: ??01/12/2000 08:48 End of Report [facility] 01/06/2000 01/08/2000 Kerryshade Aislinn CNM PATHOLOGY ORDERABLES [facility] [address] [place] [address] documented in this encounter Visit Diagnoses Not on filedocumented in this encounter
--- OUTSIDE RECORDS SUMMARY | 2024-01-20 16:00 | XMS_ITS | Encounter Summary ---
Author Organization [facility] Address [address] [place] [address] Care Team Providers Care Tapping Machine Operator Name Role Phone Unknown, Provider Primary Care Provider [phone] Unknown, Provider Unavailable [phone] Encounter Details Date Type Department Care Team (Late st Contact Info) Description 10/06/[address] [facility] Pathology & Laboratory Medicine - [facility] [address] [place] [address] Outr Resulting Lab, Provider Social History Tobacco [...] Procedure Name Priority Date/Time Associated Diagnosis Comments HIV 1/2 ANTIGEN AND ANTIBODY, 4TH GENERATION Routine 10/06/2019 11:30 EDT documented in this encounter Results * HIV 1/2 ANTIGEN AND ANTIBODY, 4TH GENERATION (10/06/2019 11:30 EDT) HIV 1 and 2 Antibody/p24 Antigen, 4th Generation Negative Negative 10/07/2019 10:57 EDT [facility] Comment: If acute HIV-1 infection is suspected in a high risk ??patient, submit plasma specimen for HIV-1 RNA quantitation test. Fourth Generation assay performed on the Siemens SonarMedaur. Blood VENOUS BLOOD / Unknown 10/06/2019 11:30 EDT 10/06/2019 20:41 EDT Provider Outr Resulting Lab IMMUNOLOGY A ND SEROLOGY ORDERABLES [facility] [address] [place] [address] documented in this encounter Visit Diagnoses Not on filedocumented in this encounter Additional Health Concerns Infection Onset Date Last Indicated Resolved Time R/O COVID-19 11/10/2019 11/10/2019 11/15/2019 22:1 5 EDT documented as of this encounter Care Teams Tapping Machine Operator Relationship Specialty Start Date End Date Unknown, Provider, PCP - General 04/06/16 Unknown, ProviderMD 04/06/16 documented as of this encounter
--- OUTSIDE RECORDS SUMMARY | 2024-01-20 16:00 | XMS_ITS | Encounter Summary ---
Author Organization [facility] Address [address] [place] [address] Care Team Providers Care Changer Fixer Name Role Phone Unknown, Provider Primary Care Provider [phone] Unknown, Provider Unavailable [phone] Encounter Details Date Type Department Care Team (Late st Contact Info) Description 11/10/2019 Lab Requisition [facility] Pathology & Laboratory Medicine - [facility] [address] [place] [address] Outr Resulting Lab, Provider Social History Tobacco [...] Procedure Name Priority Date/Time Associated Diagnosis Comments DO NOT ORDER STANDALONE - BROAD COVID TEST Today 11/10/2019 10:16 EDT COVID-19 TESTING Routine 11/10/2019 10:1 6 EDT documented in this encounter Results * DO NOT ORDER STANDALONE - BROAD COVID TEST (11/10/2019 10:16 EDT) COVID-19 rt-PCR Result NEGATIVE Negative 11/12/2019 6:45 EDT [facility] Comment: 2019-novel Coronavirus (2019-nCoV) not detected by the qRT-PCR assay. Consider testing for other respiratory viruses or re-collecting for 2019-nCoV testing. Note: Optimum timing for peak viral levels during infections caused by 2019-nCoV have not been determined. Collection of multiple specimens from the same patient may be necessary to detect the virus. Limitations Positive results are indicative of active infection with SARS-CoV-2 but do not rule out bacterial infection or co-infection with other viruses. The agent detected may not be the definite cause of disease. In addition, detection of viral RNA may not indicate the presence of infectious virus or that SARS-CoV-2 is the causative agent for clinical symptoms. Negative results do not preclude SARS-CoV-2 infection and should not be used as the sole basis for patient management decisions. Negative results must be combined with clinical observations, patient history, and epidemiological information. False negative results may also occur if amplification inhibitors are present in the specimen or if inadequate numbers of organisms are present in the specimen. Optimum specimen types and timing for peak viral levels during infections caused by SARS-CoV-2 have not been fully determined. Collection of multiple specimens (types and time points) from the same patient may be necessary to detect the virus. The test was validated for use with upper respiratory specimens obtained via nasopharyngeal or oropharyngeal swabs in VTM, UTM, M4, M5, M6, saline, and MTM media. The performance of this test has not been established for other specimens. Specimens collected using other FDA recommended Specimen Collection Materials listed in the FDA COVID-19 Diagnostic Technologies communication (July 27, 2019) are processed with the caveat that they were not all validated for use with this test and the result must be interpreted in this context. Furthermore, a false negative results may occur if a specimen is improperly collected, transported or handled. If the virus mutates in the RT-PCR target region, SARS-CoV-2 may not be detected or may be detected less predictably. Inhibitors or other types of interference may produce a false negative result. An interference study evaluating the effect of common cold medications was not performed. This test is not FDA-cleared but its performance characteristics were established by our CLIA-certified, CAP-accredited, high complexity laboratory in accordance with CLIA regulations, College [employer] [place] [employer] (CAP) guidelines (Jul 20, 2019), and FDA guidance (Jul 01, 2019). This test is only for use under the Food and Drug Administration's Emergency Use Authorization. Swab ENTIRE NASOPHARYNX / Unknown 11/10/2019 10:16 EDT 11/10/2019 15:41 EDT Provider Outr Resulting Lab MICROBIOLOGY - GENERAL ORDERABLES [facility] [place], [place] * COVID-19 TESTING (11/10/2019 10:16 EDT) COVID-19 rt-PCR Result NEGATIVE Negative 11/12/2019 8:28 EDT [facility] Comment: 2019-novel Coronavirus (2019-nCoV) not detected by the qRT-PCR assay. Consider testing for other respiratory viruses or re-collecting for 2019-nCoV testing. Note: Optimum timing for peak viral levels during infections caused by 2019-nCoV have not been determined. Collection of multiple specimens from the same patient may be necessary to detect the virus. Limitations Positive results are indicative of active infection with SARS-CoV-2 but do not rule out bacterial infection or co-infection with other viruses. The agent detected may not be the definite cause of disease. In addition, detection of viral RNA may not indicate the presence of infectious virus or that SARS-CoV-2 is the causative agent for clinical symptoms. Negative results do not preclude SARS-CoV-2 infection and should not be used as the sole basis for patient management decisions. Negative results must be combined with clinical observations, patient history, and epidemiological information. False negative results may also occur if amplification inhibitors are present in the specimen or if inadequate numbers of organisms are present in the specimen. Optimum specimen types and timing for peak viral levels during infections caused by SARS-CoV-2 have not been fully determined. Collection of multiple specimens (types and time points) from the same patient may be necessary to detect the virus. The test was validated for use with upper respiratory specimens obtained via nasopharyngeal or oropharyngeal swabs in VTM, UTM, M4, M5, M6, saline, and MTM media. The performance of this test has not been established for other specimens. Specimens collected using other FDA recommended Specimen Collection Materials listed in the FDA COVID-19 [employer] communication (July 27, 2019) are processed with the caveat that they were not all validated for use with this test and the result must be interpreted in this context. Furthermore, a false negative results may occur if a specimen is improperly collected, transported or handled. If the virus mutates in the RT-PCR target region, SARS-CoV-2 may not be detected or may be detected less predictably. Inhibitors or other types of interference may produce a false negative result. An interference study evaluating the effect of common cold medications was not performed. This test is not FDA-cleared but its performance characteristics were established by our CLIA-certified, CAP-accredited, high complexity laboratory in accordance with CLIA regulations, College of [place] [employer] (CAP) guidelines (Jul 20, 2019), and FDA guidance (Jul 01, 2019). This test is only for use under the Food and Drug Administration's Emergency Use Authorization. Performing Lab [facility] 11/12/2019 8:28 EDT [facility] Swab 11/10/2019 10:1 6 EDT 11/10/2019 15:41 EDT Provider Outr Resulting Lab MICROBIOLOGY - GENERAL ORDERABLES [facility] [address] [place], [place] [id number] [place] [address] LABORATORY [place], [place] documented in this encounter Visit Diagnoses Not on filedocumented in this encounter Additional Health Concerns Infection Onset Date Last Indicated Resolved Time R/O COVID-19 11/10/2019 11/10/2019 11/15/2019 22:1 5 EDT documented as of this encounter Care Teams Changer Fixer Relationship Specialty Start Date End Date Unknown, ProviderMD PCP - General 04/06/16 Unknown, MD Juana 04/06/16 documented as of this encounter
--- OUTSIDE RECORDS SUMMARY | 2024-01-20 16:00 | XMS_ITS | Clinical Summary ---
Author Organization [facility] Address [address] [place] [address] Care Team Providers Care Field Map Technician Name Role Phone Unknown, Provider MD Primary Care Provider [phone] Unknown, Provider MD Unavailable [phone] Encounters Date Type Department Care Team Description 10/29/2023 Lab Requisition [facility] Pathology & Laboratory Medicine - [facility] [address] [place] [address] Rachelle Alvarado DO Residual hemorrhoidal skin tags; [...] Orientation Not on file Plan of Treatment Health Maintenance Due Date Last Done Comments Hepatitis B Vaccine (1 of 3 - 19+ 3-dose series) 05/29 COVID-19 Vaccine (2022- season) 2023 Hepatitis C Screen Completed 10/06/2019 Procedures Procedure Name Priority Date/Time Associated Diagnosis [...] explore management options, if applicable. 11/01/2023 14:23 [facility] Final Diagnosis A. COLON, AT 40 CM, POLYP, BIOPSY: - Tubular adenoma. 11/01/2023 14:23 [facility] Attestation By the signature below, the attending physician certifies that they have 1) personally conducted a gross and/or microscopic examination of the described specimen(s), and/or personally interpreted the results of laboratory testing of the described specimen(s), and 2) personally rendered or confirmed the above diagnosis. 11/01/2023 14:23 [facility] at 1423 Clinical History CRC screening, E. hem, polyps, few tic 11/01/2023 14:23 [facility] Gross Description A. Received in formalin labelled with proper patient identification (initials G, L) and colon polyp at 40 cm is a single aguero tissue (0.5 x 0.2 x 0.1 cm). Submitted intact in A1. Adia Tavera 11/01/2023 7:40 11/01/2023 14:23 [facility] Performing Lab [facility] 11/01/2023 14:23 [facility] Scanned Images 11/01/2023 14:23 [facility] Tissue COLON STRUCTURE / Unknown 10/29/2023 11:24 EDT 10/29/2023 20:56 EDT Rachelle Alvarado DO PATHOLOGY ORDERABLES [facility] [address] [place] [address] * HEPATITIS C AB W REFLEX TO HCV RNA BY PCR (10/06/2019 11:30 EDT) Hep C Antibody Negative Negative 10/09/2019 10:53 EDT [facility] Blood VENOUS BLOOD / Unknown 10/06/2019 11:30 EDT 10/06/2019 20:41 EDT Provider Outr Resulting Lab CHEMISTRY & BLOOD GAS ORDERABLES [facility] [address] [place] [address] from Last 3 Months or Most Recently Relevant to Health Maintenance Care Teams Field Map Technician Relationship Specialty Start Date End Date Unknown, MD Juana PCP - General 04/06/16 Unknown, MD Juana 04/06/16
--- OUTSIDE RECORDS SUMMARY | 2024-01-20 16:00 | XMS_ITS | Encounter Summary ---
Author Organization [facility] Address [address] [place] [address] Care Team Providers Care Supervisor Nutritional Yeast Name Role Phone Unknown, Provider Primary Care Provider [phone] Encounter Details Date Type Department Care Team (Late st Contact Info) Description 03/30/2016 Results Only [facility]- [facility]ISM [phone] Leah Aceves APRN [address] [place] [address] Social History Tobacco Use Types Packs/Day Years Used Date Smoking Tobacco: Never Assessed Sex and Gender Information Value Date Recorded Sex Assigned at Not on file Gender Identity Not on file Sexual Orientation Not on file documented as of this encounter Plan of Treatment Not on file documented as of this encounter Procedures Procedure Name Priority Date/Time Associated Diagnosis Comments PAP TEST- RESULT ONLY Routine 03/30/2016 0:00 EST documented in this encounter Results * PAP TEST- RESULT ONLY (03/30/2016 0:00 EST) Pathology Report: CYTOPATHOLOGY REPORT Reports generated via electronic interface contain original data; however they are lacking the format of the original report. Caution should be taken when reading/interpreti ng unformatted reports. Name: ? IZABELLA STEVENS ? Accession #: ? [id number] ? : ? 1970 (Age: 45) ??F ?Collect Date: ? 03/30/2016 ? Location: ? [facility] ? Receive Date: ? 03/31/2016 ? Provider: LEAH ACEVES APRN Copy to: ? Final Report SPECIMEN ADEQUACY ? Satisfactory for Evaluation - transformation zone component present GENERAL CATEGORIZATION ? Negative for Intraepithelial Lesion or Malignancy ?? Specimen/Source: ??Pap Test, Cervix, ThinPrep Imaging System with manual evaluation Document reviewed and electronically signed by: ? JUSTYNA Barrett(ASCP) ? Report ??Date: 04/03/2016 10:12 HPV with Pap Test ? Date Ordered: ? 04/03/2016 ? Status: ?? Signed Out ?Date Complete: ? 04/07/2016 ? By: ??System Interface ? Date Reported: ? 04/07/2016 ? Interpretation RESULT: Negative for HPV. No E6 or E7 mRNA is detected from HPV types 16,18,31,33,35, 39,45,51,52,56,58, 59,66, and 68 by rig builder mediated amplification. Comments Document reviewed and electronically signed by: ? System Interface ? Report date: 04/07/2016 By the signature above, the attending physician certifies that he/she has personally conducted a gross and/or microscopic examination of the described specimens and rendered or confirmed the above diagnosis. End of Report [facility] 03/30/2016 03/31/2016 Leah Aceves APRN PATHOLOGY ORDERABLES [facility] [address] [place] [address] documented in this encounter Visit Diagnoses Not on filedocumented in this encounter Care Teams Supervisor Nutritional Yeast Relationship Specialty Start Date End Date Unknown, Provider, PCP - General 03/31/16 04/05/16 documented as of this encounter
--- OUTSIDE RECORDS SUMMARY | 2024-01-20 16:00 | XMS_ITS | Encounter Summary ---
Author Organization [facility] Address [address] [place] [address] Care Team Providers Care Washcloth Folder Name Role Phone Unavailable Primary Care Provider Unavailabl e Encounter Details Date Type Department Care Team (Late st Contact Info) Description 04/22/2001 Results Only [facility] - Maple conversion [address] [place] [address] [address] [facility] [address] [place] [address] [place] [address] Social History Tobacco Use Types Packs/Day Years Used Date Smoking Tobacco: Never Assessed Sex and Gender Information Value Date Recorded Sex Assigned at Not on file Gender Identity Not on file Sexual Orientation Not on file documented as of this encounter Plan of Treatment Not on file documented as of this encounter Procedures Procedure Name Priority Date/Time Associated Diagnosis Comments CYTOPATHOLOGY Routine 04/22/2001 0:00 EST documented in this encounter Results * CYTOPATHOLOGY (04/22/2001 0:00 EST) Pathology Report: CYTOPATHOLOGY REPORT Reports generated via electronic interface contain original data; however they are lacking the format of the original report. Caution should be taken when reading/interpreti ng unformatted reports. Name: ? GRACIE IZABELLA ? Accession #: ? [id number] : ? 1970 (Age: 30) ??F ?Collect Date: ? 04/22/2001 Location: ? [facility] ? Receive Date: ? 04/28/2001 Provider: ?QUYEN RAMIREZ BUNDLES HANGER Copy to: ? Specimen/Source: ?ThinPrep Pap Test, Cervix/Endocervix Last Menstrual Period: ? 04/09/01 Previous Gynecologic Pathology: ? Yes: Acute inflammation, WNL since ? SPECIMEN ADEQUACY ? Satisfactory for Evaluation - transformation zone component present GENERAL CATEGORIZATION ? Negative for Intraepithelial Lesion or Malignancy ? Document reviewed and electronically signed by: ? AARON Thomas(ASCP) ? Report Date: ??05/05/2001 07:51 End of Report [facility] 04/22/2001 04/28/2001 Quyen Ramirez BUNDLES HANGER PATHOLOGY ORDERABLES [facility] [address] [place] [address] documented in this encounter Visit Diagnoses Not on filedocumented in this encounter
[2024-01-20 17:39] LABS: HCT 43.6 % (36.0-46.0); HGB 14.5 g/dL (11.2-15.7); MCH 31.8 pg (27.0-33.0); MCHC 33.3 % (32.0-36.0); MCV 96 fL (80-95); MPV 10.1 fL (8.0-11.0); Platelet Count 340 10^3/uL (130-400); RBC 4.56 10^6/uL (3.93-5.22); RDW 12.3 % (11.7-14.6); WBC 5.27 10^3/uL (4.4-10.8)
[2024-01-20 18:02] LABS: Anion Gap 11.9 mmol/L (3-11); BUN 12 mg/dL (7-18); CO2 27.1 mmol/L (21.0-32.0); CREATININE 0.9 mg/dL (0.55-1.02); Calcium 11.5 mg/dL (8.5-10.1); Chloride 100 mmol/L (98-107); Glucose 102 mg/dL (74-106); Potassium 4.2 mmol/L (3.5-5.1); Sodium 139 mmol/L (136-145)
== END 2024-01-20 15:58 | disposition home or self-care (01) ==
LOC: NCHCN 15:57
PROVIDERS: Visit Provider Nurse Practitioner Family
DX: K21.9 Gastro-esophageal reflux disease without esophagitis (principal); I10 Essential (primary) hypertension
CPT/HCPCS: 80048; 85027

== ENCOUNTER 2024-02-28 01:13 | Outpatient (CLI) | payer BC, SELFPAY ==
--- NOTE | 2024-02-28 | DI.MAMMO_ITS ---
Exam(s) MAMMO SCREENING EXAM: MAMMO SCREENING CLINICAL HISTORY: SCREENING MAMMO Z12.31 TECHNIQUE: Mammograms were interpreted according to the usual protocol including computer analysis w [employer] CAD system, tomosynthesis and C-view imaging. COMPARISON: 2015 through 2022 FINDINGS: The breasts are composed of scattered fibroglandular densities, Breast Density category B. No suspicious masses or suspicious microcalcifications are seen. No skin thickening or abnormal axillary lymph nodes are seen. There has been no significant change from prior exams. IMPRESSION: BI-RADS Category 1, Negative mammogram Yearly screening mammography is recommended. Breast Density - Category B, scattered fibroglandular densities. A negative radiographic report should not delay biopsy if a dominant or clinically suspicious mass is present. Up to ten percent of cancers are not identified on mammography. A negative report may reinforce clinical impression. Adenosis and dense breasts may obscure an underlying neoplasm. False positive reports average 6 to 10%. Patient will receive a letter notifying them of these results.
== END 2024-02-28 01:33 ==
PROVIDERS: PCP Nurse Practitioner Family; Visit Provider Nurse Practitioner Family
DX: Z12.31 Encounter for screening mammogram for malignant neoplasm of breast (principal); R92.323 Mammographic fibroglandular density, bilateral breasts
CPT/HCPCS: 77063; 77067

== ENCOUNTER 2024-03-03 12:58 | Outpatient (CLI) | payer BC, SELFPAY ==
--- OUTSIDE RECORDS SUMMARY | 2024-03-03 13:01 | XMS_ITS | Clinical Summary ---
Author Organization [facility] Address [address] [place] [address] Care Team Providers Care Technology Analyst Name Role Phone Unknown, Provider MD Primary Care Provider Unava ilable Unknown, Provider MD Unavailable Unavailable Social History Tobacco Use Types Packs/Day Years Used Date Smoking Tobacco: Never Assessed Sex and Gender Information Value Date Recorded Sex Assigned at Not on file Gender Identity Not on file Sexual Orientation Not on file Plan of Treatment Health Maintenance Due Date Last Done Comments Hepatitis B Vaccine (1 of 3 - 19+ 3-dose series) 05/29 COVID-19 Vaccine ( season) 2023 Hepatitis C Screen Completed 10/06/2019 Procedures Procedure Name Priority Date/Time Associated Diagnosis Comments HEPATITIS C AB W REFLEX TO HCV RNA BY PCR Routine 10/06/2019 11:30 EDT from Last 3 Months or Most Recently Relevant to Health Maintenance Results * HEPATITIS C AB W REFLEX TO HCV RNA BY PCR (10/06/2019 11:30 EDT) Hep C Antibody Negative Negative 10/09/2019 10:53 EDT [facility] Blood VENOUS BLOOD / Unknown 10/06/2019 11:30 EDT 10/06/2019 20:41 EDT Provider Outr Resulting Lab CHEMISTRY & BLOOD GAS ORDERABLES [facility] [address] [place] [address] from Last 3 Months or Most Recently Relevant to Health Maintenance Care Teams Technology Analyst Relationship Specialty Start Date End Date Unknown, Provider, PCP - General 04/06/16 Unknown, ProviderMD 04/06/16
--- OUTSIDE RECORDS SUMMARY | 2024-03-03 13:01 | XMS_ITS | Encounter Summary ---
Author Organization [facility] Address [address] [place] [address] Care Team Providers Care Machine Try Out Setter Name Role Phone Unknown, Provider MD Primary Care Provider Unava ilable Unknown, Provider MD Unavailable Unavailable Encounter Details Date Type Department Care Team (Late st Contact Info) Description 10/06/2019 Lab Requisition [facility] Pathology & Laboratory Medicine - [facility] [address] [place], [place] [id number] Outr Resulting Lab, Provider Social History Tobacco [...] Negative Negative 10/09/2019 10:53 EDT [facility] Blood VENOUS BLOOD / Unknown 10/06/2019 11:30 EDT 10/06/2019 20:41 EDT Provider Outr Resulting Lab CHEMISTRY & BLOOD GAS ORDERABLES [facility] [address] [place] [address] documented in this encounter Visit Diagnoses Not on filedocumented in this encounter Additional Health Concerns Infection Onset Date Last Indicated Resolved Time R/O COVID-19 11/10/2019 11/10/2019 11/15/2019 22:1 5 EDT documented as of this encounter Care Teams Machine Try Out Setter Relationship Specialty Start Date End Date Unknown, Provider, PCP - General 04/06/16 Unknown, ProviderMD 04/06/16 documented as of this encounter
--- OUTSIDE RECORDS SUMMARY | 2024-03-03 13:01 | XMS_ITS | Encounter Summary ---
Author Organization [facility] Address [address] [place] [address] Care Team Providers Care Life Advisor Name Role Phone Unknown, Provider MD Primary Care Provider Unava ilable Unknown, Provider MD Unavailable Unavailable Encounter Details Date Type Department Care Team (Latest Contact Info) Description 09/27/2020 Lab Requisition [facility] Pathology & Laboratory Medicine - [facility] [address] [place] [address] David Perera, [address] [place] [id number] Encounter for general adult medical examination without [...] types, PCR Negative Negative 10/09/2020 15:36 EDT [facility] [place] [facility] Comment:No E6 or E7 mRNA is detected from HPV types 16,18,31,33,35,39,45,51,52,56,58,59,66, and 68 by protective services case worker mediated amplification. Papanicolaou smear specimen (specimen) CERVIX UTERI STRUCTURE / Unknown 09/26/2020 8:30 EDT 10/08/2020 13:00 EDT David Duffy [facility] MICROBIOLOGY - NERAL ORDERABLES [facility] [address] [place] [address] * PAP TEST (09/26/2020 8:30 EDT) Specimens A. Cervix and/or Endocervix , ThinPrep Imaging System with Manual Evaluation 10/09/2020 15:36 [facility] Specimen Adequacy Satisfactory for Evaluation - transformation zone component present 10/09/2020 15:36 [facility] General Categorization Negative for intraepithelial lesion or malignancy 10/09/2020 15:36 [facility] Attestation . 10/09/2020 15:36 [facility] at 1536 Clinical History See below 10/10/19 21 15:36 T [facility] [place] [facility] HPV The result for the Human Papillomavirus (HPV) Detection-High Risk Types is Negative. No E6 or E7 mRNA is detected from HPV types 16,18,31,33,35,39 ,45,51,52,56,58,5 9,66, and 68 by protective services case worker mediated amplification.Lanie ting was performed on specimen [id number] and was resulted on 10/09/2020 1528 EDT by DERRICK, LAB INSTRUMENT RESULTS IN 10/09/2020 15:36 T [facility] Performing Lab [facility] 10/09/2020 15:36 [facility] Scanned Images 10/09/2020 15:36 EDT [facility] Papanicolaou smear specimen (specimen) CERVIX UTERI STRUCTURE / Unknown 09/26/2020 8:30 EDT 09/27/2020 8:17 EDT David Duffy DNP PATHOLOGY ORDERAB LES [facility] [facility] [address] [place] [address] documented in this encounter Visit Diagnoses Diagnosis Encounter for general adult medical examination without abnormal findings Unspecified general medical examination Encounter for screening for malignant neoplasm of cervix Screening for malignant neoplasm of the cervix Encounter for screening for human papillomavirus (HPV) Special screening examination for human papillomavirus (HPV) documented in this encounter Care Teams Life Advisor Relationship Specialty Start Date End Date Unknown, ProviderMD PCP - General 04/06/16 Unknown, ProviderMD 04/06/16 documented as of this encounter
--- OUTSIDE RECORDS SUMMARY | 2024-03-03 13:01 | XMS_ITS | Encounter Summary ---
Author Organization [facility] Address [address] [place] [address] Care Team Providers Care Stadium Manager Name Role Phone Unknown, Provider MD Primary Care Provider Unava ilable Unknown, Provider MD Unavailable Unavailable Encounter Details Date Type Department Care Team (Late st Contact Info) Description 10/29/2023 Lab Requisition [facility] Pathology & Laboratory Medicine - [facility] [address] [place] [address] Rachelle Alvarado, DO [address] [place] [address] Residual hemorrhoidal skin tags; Diverticulosis of large [...] explore management options, if applicable. 11/01/2023 14:23 [facility] Final Diagnosis A. COLON, AT 40 CM, POLYP, BIOPSY: - Tubular adenoma. 11/01/2023 14:23 [facility] Attestation By the signature below, the attending physician certifies that they have 1) personally conducted a gross and/or microscopic examination of the described specimen(s), and/or personally interpreted the results of laboratory testing of the described specimen(s), and 2) personally rendered or confirmed the above diagnosis. 11/01/2023 14:23 [facility] at 1423 Clinical History CRC screening, E. hem, polyps, few tic 11/01/2023 14:23 [facility] Gross Description A. Received in formalin labelled with proper patient identification (initials G, L) and colon polyp at 40 cm is a single aguero tissue (0.5 x 0.2 x 0.1 cm). Submitted intact in A1. Adia Tavera 11/01/2023 7:40 11/01/2023 14:23 [facility] Performing Lab [facility] 11/01/2023 14:23 [facility] Scanned Images 11/01/2023 14:23 [facility] Tissue COLON STRUCTURE / Unknown 10/29/2023 11:24 EDT 10/29/2023 20:56 EDT Rachelle Alvarado DO PATHOLOGY ORDERABLES [facility] [address] [place], [place] [address] documented in this encounter Visit Diagnoses Diagnosis Residual hemorrhoidal skin tags Diverticulosis of large intestine without perforation or abscess without bleeding Diverticulosis of colon (without mention of hemorrhage) Polyp of colon Benign neoplasm of colon Encounter for screening for malignant neoplasm of colon Special screening for malignant neoplasms, colon documented in this encounter Care Teams Stadium Manager Relationship Specialty Start Date End Date Unknown, Provider, PCP - General 04/06/16 Unknown, ProviderMD 04/06/16 documented as of this encounter
--- OUTSIDE RECORDS SUMMARY | 2024-03-03 13:01 | XMS_ITS | Encounter Summary ---
Author Organization [facility] Address [address] [place] [address] Care Team Providers Care Liquid Flavor Compounder Name Role Phone Unknown, Provider MD Primary Care Provider Unava ilable Unknown, Provider MD Unavailable Unavailable Encounter Details Date Type Department Care Team (Late st Contact Info) Description 11/10/2019 Lab Requisition [facility] Pathology & Laboratory Medicine - [facility] [address] [place], [place] [address] Outr Resulting Lab, Provider Social History Tobacco [...] rt-PCR Result NEGATIVE Negative 11/12/2019 6:45 EDT [facility] Comment: 2019-novel Coronavirus (2019-nCoV) not [...] in accordance with CLIA regulations, [employer] [place] [employer] (CAP) guidelines (Jul 20, 2019), and FDA guidance (Jul 01, 2019). This test is only for use under the Food and Drug Administration's Emergency Use Authorization. Swab ENTIRE NASOPHARYNX / Unknown 11/10/2019 10:16 EDT 11/10/2019 15:41 EDT Provider Outr Resulting Lab MICROBIOLOGY - GENERAL ORDERABLES [facility] [place], [place] * COVID-19 TESTING (11/10/2019 10:16 EDT) COVID-19 rt-PCR Result NEGATIVE Negative 11/12/2019 8:28 EDT [facility] Comment: 2019-novel Coronavirus (2019-nCoV) not detected [...] in accordance with CLIA regulations, [employer] [place] [employer] (CAP) guidelines (Jul 20, 2019), and FDA guidance (Jul 01, 2019). This test is only for use under the Food and Drug Administration's Emergency Use Authorization. Performing Lab [facility] 11/12/2019 8:28 EDT [facility] Swab 11/10/2019 10:1 6 EDT 11/10/2019 15:41 EDT Provider Outr Resulting Lab MICROBIOLOGY - GENERAL ORDERABLES [facility] [address] [place] [address] [facility] [place], [place] documented in this encounter Visit Diagnoses Not on filedocumented in this encounter Additional Health Concerns Infection Onset Date Last Indicated Resolved Time R/O COVID-19 11/10/2019 11/10/2019 11/15/2019 22:1 5 EDT documented as of this encounter Care Teams Liquid Flavor Compounder Relationship Specialty Start Date End Date Unknown, Provider, PCP - General 04/06/16 Unknown, ProviderMD 04/06/16 documented as of this encounter
--- OUTSIDE RECORDS SUMMARY | 2024-03-03 13:01 | XMS_ITS | Encounter Summary ---
Author Organization [facility] Address [address] [place] [address] Care Team Providers Care Delivery Helper Name Role Phone Unknown, Provider MD Primary Care Provider Unava ilable Unknown, Provider MD Unavailable Unavailable Encounter Details Date Type Department Care Team (Late st Contact Info) Description 10/06/2019 Lab Requisition [facility] Pathology & Laboratory Medicine - [facility] [address] [place], [place] [id number] Outr Resulting Lab, Provider Social History Tobacco [...] 4th Generation Negative Negative 10/07/2019 10:57 EDT [facility] Comment: If acute HIV-1 infection is suspected in a high risk ??patient, submit plasma specimen for HIV-1 RNA quantitation test. Fourth Generation assay performed on the Siemens [place]. Blood VENOUS BLOOD / Unknown 10/06/2019 11:30 EDT 10/06/2019 20:41 EDT Provider Outr Resulting Lab IMMUNOLOGY A ND SEROLOGY ORDERABLES [facility] [address] [place] [address] documented in this encounter Visit Diagnoses Not on filedocumented in this encounter Additional Health Concerns Infection Onset Date Last Indicated Resolved Time R/O COVID-19 11/10/2019 11/10/2019 11/15/2019 22:1 5 EDT documented as of this encounter Care Teams Delivery Helper Relationship Specialty Start Date End Date Unknown, Provider, PCP - General 04/06/16 Unknown, ProviderMD 04/06/16 documented as of this encounter
--- OUTSIDE RECORDS SUMMARY | 2024-03-03 13:01 | XMS_ITS | Referral Summary ---
Author Organization [facility] Address [address] [place] [address] Care Team Providers Care Automotive Title Clerk Name Role Phone Unknown, Provider MD Primary [...] C Antibody Negative Negative 10/09/2019 10:53 EDT [facility] Blood VENOUS BLOOD / Unknown 10/06/2019 11:30 EDT 10/06/2019 20:41 EDT Provider Outr Resulting Lab CHEMISTRY & BLOOD GAS ORDERABLES [facility] [address] [place] [address] from Last 3 Months or Most Recently Relevant to Health Maintenance Care Teams Automotive Title Clerk Relationship Specialty Start Date End Date Unknown, Provider, PCP - General 04/06/16 Unknown, ProviderMD 04/06/16
--- OUTSIDE RECORDS SUMMARY | 2024-03-03 13:02 | XMS_ITS | Encounter Summary ---
Author Organization [facility] Address [address] [place] [address] Care Team Providers Care Scrap Cutter Name Role Phone Unavailable Primary Care Provider Unavailabl e Encounter Details Date Type Department Care Team (Late st Contact Info) Description 01/06/2000 Results Only [facility] - [facility] [address] [place] [address] [facility] [address] [place] [address] Social History Tobacco Use Types Packs/Day Years [...] ? IZABELLA BOWMAN ? Accession #: ? [id number] : ? 1970 (Age: 29) ??F ?Collect [...] Aislinn CNM PATHOLOGY ORDERABLES [facility] [address] [place] [address] documented in this encounter Visit Diagnoses Not on filedocumented in this encounter
--- OUTSIDE RECORDS SUMMARY | 2024-03-03 13:02 | XMS_ITS | Encounter Summary ---
Author Organization [facility] Address [address] [place] [address] Care Team Providers Care Boiler Plant Operator Name Role Phone Unknown, Provider Primary Care Provider Unava ilable Encounter Details Date Type Department Care Team (Late st Contact Info) Description 03/30/2016 Results Only [facility] [phone] Leah Aceves, CARO [address] [place], [place] [address] Social History Tobacco Use Types Packs/Day Years [...] ? IZABELLA STEVENS ? Accession #: ? [id number] ? : ? 1970 (Age: 45) ??F ?Collect Date: ? 03/30/2016 ? Location: ? [facility] ? Receive Date: ? 03/31/2016 ? Provider: LAEH ACEVES APRN Copy to: ? Final Report [...] types 16,18,31,33,35, 39,45,51,52,56,58, 59,66, and 68 by corporate traffic manager mediated amplification. Comments Document reviewed and electronically signed by: ? System Interface ? Report date: 04/07/2016 By the signature above, the attending physician certifies that he/she has personally conducted a gross and/or microscopic examination of the described specimens and rendered or confirmed the above diagnosis. End of Report [facility] 03/30/2016 03/31/2016 Leah Aceves APRN PATHOLOGY ORDERABLES [facility] [address] [place] [id number] documented in this encounter Visit Diagnoses Not on filedocumented in this encounter Care Teams Boiler Plant Operator Relationship Specialty Start Date End Date Unknown, Provider, PCP - General 03/31/16 04/05/16 documented as of this encounter
--- OUTSIDE RECORDS SUMMARY | 2024-03-03 13:02 | XMS_ITS | Encounter Summary ---
Author Organization [facility] Address [address] [place] [address] Care Team Providers Care Reconciliation Machine Operator Name Role Phone Unavailable Primary Care Provider Unavailabl e Encounter Details Date Type Department Care Team (Late st Contact Info) Description 04/22/2001 Results Only [facility] - [facility] [address] [place] [address] [facility] [address] [place] [address] [place] [address] Social History Tobacco Use Types [...] ? GRACIE IZABELLA ? Accession #: ? [id number] : ? 1970 (Age: 30) ??F ?Collect Date: ? 04/22/2001 Location: ? [facility] ? Receive Date: ? 04/28/2001 Provider: ?QUYEN RAMIREZ BUS DRIVER Copy to: ? Specimen/Source: ?ThinPrep Pap Test, [...] Report [facility] 04/22/2001 04/28/2001 Quyen Ramirez BUS DRIVER PATHOLOGY ORDERABLES [facility] [address] [place] [address] documented in this encounter Visit Diagnoses Not on filedocumented in this encounter
[2024-03-03 13:27] LABS: Calcium 10.2 mg/dL (8.5-10.1)
[2024-03-03 22:55] LABS: Parathyroid Hormone,Intact 54 pg/mL (19-88)
== END 2024-03-03 12:59 | disposition home or self-care (01) ==
LOC: LBO 13:00
PROVIDERS: PCP Nurse Practitioner Family; Visit Provider Nurse Practitioner Family
DX: E83.52 Hypercalcemia (principal)
CPT/HCPCS: 36415; 82310; 83970

== ENCOUNTER 2024-06-08 15:30 | Outpatient (CLI) | payer BC, SELFPAY ==
--- NOTE | 2024-06-08 15:07 | DI.RAD_ITS ---
Exam(s) XR WRIST LT COMPLETE EXAM: XR WRIST LT COMPLETE CLINICAL HISTORY: eval L thumb/wrist pain. TECHNIQUE: 2D digital imaging was performed. Three views. COMPARISON: None FINDINGS: BONES: No acute fracture is present. No bony destructive lesion is seen. JOINTS: There are severe degenerative changes at the 1st carpal metacarpal joint. There is prominent spurring and adjacent bony fragments. There is radial subluxation of the 1st metacarpal. The carpa l bones are normally aligned. SOFT TISSUE: Normal. 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 DATA REPOSITORY: RADIATION DOSE DELIVERED:
== END 2024-06-08 15:31 | disposition home or self-care (01) ==
LOC: DIORS 15:30
PROVIDERS: PCP Nurse Practitioner Family; Visit Provider Student in an Organized Health Care Education/Training Program
DX: M18.12 Unilateral primary osteoarthritis of first carpometacarpal joint, left hand
CPT/HCPCS: 73110

== ENCOUNTER 2025-01-02 15:11 | Outpatient (REF) | payer BC, SELFPAY ==
[2025-01-02 19:32] LABS: ALT 28 U/L (14-59); AST 21 U/L (15-37); Albumin 4.4 g/dL (3.4-5.0); Alkaline Phosphatase 62 U/L (46-116); Anion Gap 10.8 mmol/L (3-11); BUN 14 mg/dL (7-18); Bilirubin, Total 0.4 mg/dL (0.2-1.0); CO2 27.2 mmol/L (21.0-32.0); Calcium 10.3 mg/dL (8.5-10.1); Calculated LDL 154 mg/dL (<100); Chloride 101 mmol/L (98-107); Cholesterol 243 mg/dL (<200); Estimated GFR 86.42 (mL/min/1.73m2); Glucose 109 mg/dL (74-106); HDL Cholesterol 67 mg/dL (>or=50); Potassium 4.0 mmol/L (3.5-5.1); Sodium 139 mmol/L (136-145); Total Protein 7.5 g/dL (6.4-8.2); Triglyceride 114 mg/dL (<150)
== END 2025-01-02 15:12 | disposition home or self-care (01) ==
LOC: NCHCN 15:11
PROVIDERS: PCP Nurse Practitioner Family; Visit Provider Nurse Practitioner Family
DX: R53.83 Other fatigue (principal); R68.84 Jaw pain; E78.5 Hyperlipidemia, unspecified
CPT/HCPCS: 80053; 80061

== ENCOUNTER 2025-02-02 19:48 | Outpatient (REF) | payer BC, SELFPAY ==
[2025-02-02 20:06] LABS: Anion Gap 11.0 mmol/L (3-11); BUN 13 mg/dL (7-18); CO2 29.0 mmol/L (21.0-32.0); Calcium 10.3 mg/dL (8.5-10.1); Chloride 102 mmol/L (98-107); Estimated GFR 75.03 (mL/min/1.73m2); Glucose 92 mg/dL (74-106); Potassium 3.9 mmol/L (3.5-5.1); Sodium 142 mmol/L (136-145)
== END 2025-02-02 19:49 | disposition home or self-care (01) ==
LOC: NCHCN 19:48
PROVIDERS: PCP Nurse Practitioner Family; Visit Provider Student in an Organized Health Care Education/Training Program
DX: I10 Essential (primary) hypertension; E83.52 Hypercalcemia
CPT/HCPCS: 80048; 82330

== ENCOUNTER → 2025-03-01 03:42 | Outpatient (CLI) | payer BC, SELFPAY ==
--- NOTE | 2025-03-01 08:44 | DI.MAMMO_ITS ---
Exam(s) MAMMO SCREENING EXAM: MAMMO SCREENING CLINICAL HISTORY: SCREENING MAMMO Z12.31 NO SYMPOMS BREAST CANCER. TECHNIQUE: Bilateral full field digital CC and MLO mammographic images were obtained with 3D tomosynthesis and utilizing computer aided detection (CAD). COMPARISON: Prior mammograms were reviewed. FINDINGS: There has been no significant change in the appearance and distribution of the fibroglandular tissue. No new left breast findings. Small benign-appearing nodular density in the right breast seen on CC view is unchanged from 2016 and therefore benign. There are no new spiculated masses nor malignant appearing microcalcification groups. There is no significant architectural distortion nor skin thickening-retraction. IMPRESSION: Stable benign findings. No radiographic evidence of malignancy. BI-RADS Category 2 - Benign Findings Breast Density - Category B - There are scattered areas of fibroglandular density. Breast density Category C or D implies that the patient has dense breast tissue. Dense breast tissue can make it harder to find cancer on a mammogram. Dense breast tissue is also associated with an increased risk of breast cancer. This information about the result of the mammogram report was provided to the patient to raise their awareness. Use this report when you speak with the patient about their risks for breast cancer, which includes their family history. At that time, you may recommend additional screening tests (Ultrasound or MRI) as these tests may add significant information. A negative radiographic report should not delay biopsy if a dominant or clinically suspicious mass is present. Up to ten percent of cancers are not identified on mammography. A negative report may reinforce clinical impression. Adenosis and dense breasts may obscure an underlying neoplasm. False positive reports average 6 to 10%. Patient will receive a letter notifying them of these results.
== END ==
PROVIDERS: PCP Nurse Practitioner Family; Visit Provider Student in an Organized Health Care Education/Training Program
DX: Z12.31 Encounter for screening mammogram for malignant neoplasm of breast (principal)
CPT/HCPCS: 77063; 77067

== ENCOUNTER 2025-04-17 01:29 | Outpatient (CLI) | payer BC, SELFPAY | END 2025-04-17 01:30 | disposition home or self-care (01) | LOC: LBO 01:29 | PROVIDERS: PCP Nurse Practitioner Family; Visit Provider Student in an Organized Health Care Education/Training Program | DX: E83.52 Hypercalcemia (principal) | CPT/HCPCS: 36415; 82330 ==